=== PATIENT | female | born 1940 | race African-American/Black ===

== ENCOUNTER 2018-09-30 10:57 | Inpatient (IN) | payer MEDICARE, MEDICAID ==
[~2018-09-30] VITALS: Ht 162.6 cm; Wt 70.8 kg
[2018-09-30] MEDS ORDERED: SODIUM CHLORIDE 0.9% 1,000 ML IV ONE (11:48)
[2018-09-30 12:36] LABS: BASOPHILS % 0.5 % (0.0-2.0); EOSINOPHILS % 1.3 % (0.0-5.0); HEMATOCRIT. 39.2 % (36.0-48.0); HEMOGLOBIN. 13.5 g/dL (12.0-16.0); LYMPHOCYTES % 16.2 % (20.0-50.0); MEAN CORPUSCULAR HEMOGLOBIN 31.9 pg (28.0-32.0); MEAN CORPUSCULAR VOLUME 92.7 fL (81.0-99.0); MEAN PLATELET VOLUME 8.1 fl (7.4-10.4); MONOCYTES % 7.7 % (2.0-8.0); NEUTROPHILS % 74.3 % (40.0-76.0); PLATELET 229 x1000/uL (130-400); RED BLOOD CELL COUNT 4.23 mill/uL (4.2-5.4); RED CELL DISTRIBUTION WIDTH 13.8 % (11.6-14.6)
[2018-09-30 12:44] LABS: CHLORIDE 105 mEq/L (98-107)
[2018-09-30 12:47] LABS: PARTIAL THROMBOPLASTIN TIME 32.2 sec (23.4-31.0); PROTHROMBIN TIME 10.4 sec (9.1-11.1)
[2018-10-01] VITALS (7 sets, daily range): BP systolic 124–152; BP diastolic 44–58
[2018-10-01] MEDS ORDERED: LOSA25TA12 PO (01:59)
[2018-10-01] MEDS ORDERED: ROSU5TAB10 PO (01:59)
[2018-10-01] MEDS ORDERED: LEVO75TA7 PO (01:59)
[2018-10-01] MEDS ORDERED: DEXTROSE 50% WATER 50ML SYRINGE IV PRN (02:15)
[2018-10-01] MEDS: BLOOD SUGAR DIAGNOSTIC STRIP TEST SCH ×4 (06:26→21:00)
[2018-10-01] MEDS: LEVOTHYROXINE SODIUM 75MCG TABLET PO SCH (06:27)
[2018-10-01] MEDS: INSULIN LISPRO 100 UNITS/ML SUBCUT SCH ×4 (07:50→22:58)
[2018-10-01] MEDS: PANTOPRAZOLE 40MG DR TABLET PO SCH (08:34)
[2018-10-01] MEDS: LOSARTAN POTASSIUM 25 MG TABLET PO SCH ×2 (08:34→22:07)
[2018-10-01] MEDS ORDERED: MEDICATION NOT ON FORMULARY EA (Losartan Potassium 25 MG) PO SCH (09:00)
[2018-10-01] MEDS ORDERED: IOHEXOL-300 100 ML BOTTLE ONE (09:35)
[2018-10-01 11:12] LABS: HEMATOCRIT 33.6 % (36.0-48.0); HEMOGLOBIN 11.4 g/dL (12.0-16.0); MEAN CORPUSCULAR HEMOGLOBIN 31.7 pg (28.0-32.0); MEAN CORPUSCULAR VOLUME 93.7 fL (81.0-99.0); PLATELET 207 x1000/uL (130-400); RED BLOOD CELL COUNT 3.59 mill/uL (4.2-5.4)
[2018-10-01 12:02] LABS: CHLORIDE 108 mEq/L (98-107)
[2018-10-01 12:11] LABS: T4 FREE 1.16 ng/dL (0.76-1.46)
[2018-10-01] MEDS ORDERED: SORBITOL 70% SOLN 30ML PO NR ×3 (16:00→21:30)
[2018-10-01] MEDS ORDERED: ROSUVASTATIN CALCIUM 5 MG PO SCH (21:00)
[2018-10-01] MEDS: ROSUVASTATIN 5 MG PO SCH (22:50)
[2018-10-02] VITALS: BP 125/45
[2018-10-02 04:00] VITALS: BP 129/45
[2018-10-02 05:53] LABS: BASOPHILS % 0.7 % (0.0-2.0); EOSINOPHILS % 2.3 % (0.0-5.0); HEMATOCRIT. 33.6 % (36.0-48.0); HEMOGLOBIN. 11.4 g/dL (12.0-16.0); LYMPHOCYTES % 20.9 % (20.0-50.0); MEAN CORPUSCULAR HEMOGLOBIN 31.8 pg (28.0-32.0); MEAN CORPUSCULAR VOLUME 93.4 fL (81.0-99.0); MEAN PLATELET VOLUME 8.3 fl (7.4-10.4); MONOCYTES % 10.1 % (2.0-8.0); PLATELET 231 x1000/uL (130-400); RED CELL DISTRIBUTION WIDTH 14.2 % (11.6-14.6)
[2018-10-02 06:01] LABS: INR 1.1; PARTIAL THROMBOPLASTIN TIME 31.8 sec (23.4-31.0); PROTHROMBIN TIME 10.6 sec (9.1-11.1)
[2018-10-02 06:19] LABS: CHLORIDE 112 mEq/L (98-107)
[2018-10-02] MEDS: BLOOD SUGAR DIAGNOSTIC STRIP TEST SCH ×4 (07:20→21:00)
[2018-10-02] MEDS: INSULIN LISPRO 100 UNITS/ML SUBCUT SCH ×3 (07:50→22:16)
[2018-10-02 08:00] VITALS: BP 136/40
[2018-10-02] MEDS: PANTOPRAZOLE 40MG DR TABLET PO SCH (10:20)
[2018-10-02] MEDS: LOSARTAN POTASSIUM 25 MG TABLET PO SCH ×2 (10:20→22:10)
[2018-10-02] MEDS: LEVOTHYROXINE SODIUM 75MCG TABLET PO SCH (10:27)
[2018-10-02 12:00] VITALS: BP 131/44
[2018-10-02] MEDS ORDERED: SIMETHICONE 40 MG/0.6 ML 30ML ONE (15:21)
[2018-10-02] MEDS ORDERED: SODIUM CHLORIDE 0.9% 10ML VIAL ONE (15:21)
[2018-10-02 16:00] VITALS: BP 128/46
[2018-10-02] MEDS ORDERED: SORBITOL 70% SOLN 30ML PO NR (17:30)
[2018-10-02] MEDS ORDERED: MIDAZOLAM HCL 5 MG/5 ML VIAL ONE (17:53)
[2018-10-02] MEDS ORDERED: FENTANYL CITRATE/PF 50MCG/ML 2ML VIAL ONE (17:53)
[2018-10-02] MEDS ORDERED: MIDAZOLAM HCL 5 MG/5 ML VIAL IV PRN (17:58)
[2018-10-02] MEDS ORDERED: FENTANYL CITRATE/PF 50MCG/ML 2ML VIAL IV PRN (17:59)
[2018-10-02 20:00] VITALS: BP 128/44
[2018-10-02] MEDS: ROSUVASTATIN 5 MG PO SCH (22:16)
[2018-10-03] VITALS (7 sets, daily range): BP systolic 110–127; BP diastolic 40–60
[2018-10-03] MEDS: BLOOD SUGAR DIAGNOSTIC STRIP TEST SCH ×2 (06:56→13:02)
[2018-10-03] MEDS: LEVOTHYROXINE SODIUM 75MCG TABLET PO SCH (06:56)
[2018-10-03 07:04] LABS: BASOPHILS % 0.5 % (0.0-2.0); EOSINOPHILS % 2.7 % (0.0-5.0); HEMATOCRIT. 31.2 % (36.0-48.0); HEMOGLOBIN. 10.7 g/dL (12.0-16.0); LYMPHOCYTES % 21.7 % (20.0-50.0); MEAN CORPUSCULAR HEMOGLOBIN 31.8 pg (28.0-32.0); MEAN CORPUSCULAR VOLUME 92.8 fL (81.0-99.0); MEAN PLATELET VOLUME 8.2 fl (7.4-10.4); MONOCYTES % 7.6 % (2.0-8.0); NEUTROPHILS % 67.5 % (40.0-76.0); PLATELET 223 x1000/uL (130-400); RED BLOOD CELL COUNT 3.36 mill/uL (4.2-5.4); RED CELL DISTRIBUTION WIDTH 13.7 % (11.6-14.6)
[2018-10-03] MEDS: INSULIN LISPRO 100 UNITS/ML SUBCUT SCH ×2 (07:50→12:50)
[2018-10-03] MEDS: PANTOPRAZOLE 40MG DR TABLET PO SCH (10:12)
[2018-10-03] MEDS: LOSARTAN POTASSIUM 25 MG TABLET PO SCH (10:12)
== END 2018-10-03 15:51 | disposition home health service (06) | DRG 378 ==
LOC: ER 12:32 → 6WST 14:14 → EDBEDREQ 14:17 → EDBEDREQTM 14:17 → ENRESERV 18:11 → 6WST 10-01 16:39
PROVIDERS: ADMIT Internal Medicine; ATTEND Internal Medicine
PROC: 0DJD8ZZ Inspection of Lower Intestinal Tract, Via Natural or Artificial Opening Endoscopic (ICD-10-PCS; principal; 2018-10-02)
DX: K57.31 Diverticulosis of large intestine without perforation or abscess with bleeding (principal); E44.0 Moderate protein-calorie malnutrition; D64.9 Anemia, unspecified; E03.9 Hypothyroidism, unspecified; E87.6 Hypokalemia; E78.00 Pure hypercholesterolemia, unspecified; E11.9 Type 2 diabetes mellitus without complications; R19.7 Diarrhea, unspecified; K63.5 Polyp of colon; E78.5 Hyperlipidemia, unspecified; I10 Essential (primary) hypertension; K64.8 Other hemorrhoids; M17.10 Unilateral primary osteoarthritis, unspecified knee; M50.30 Other cervical disc degeneration, unspecified cervical region; Z88.8 Allergy status to other drugs, medicaments and biological substances; Z68.26 Body mass index [BMI] 26.0-26.9, adult; Z79.899 Other long term (current) drug therapy
CPT/HCPCS: 36415; 71045; 74178; 80048; 82270; 82962; 83036; 84439; 84443; 85027; 86850; 86900; 93970; 96360; 99291; J1815; J2250; J3010; J7030; Q9967

== ENCOUNTER 2021-07-18 13:02 | Inpatient (IN) | payer MEDICARE, MEDICAID ==
[~2021-07-18] VITALS: Ht 172.7 cm; Wt 83.0 kg
[~2021-07-18 13:02] MED LIST: LEVO75TA7 PO; LOSA25TA26 PO; ROSU5TAB10 PO
[2021-07-18] MEDS ORDERED: LABETALOL 5MG/ML SYR 20 MG/4 ML SYRINGE IV PRN (13:30)
[2021-07-18] MEDS ORDERED: IOHEXOL-350 100 ML BOTTLE ONE (14:40)
[2021-07-18 14:43] LABS: BASOPHILS % 0.5 % (0.0-2.0); CHLORIDE 105 mEq/L (98-107); EOSINOPHILS % 1.3 % (0.0-5.0); HEMATOCRIT. 33.4 % (36.0-48.0); HEMOGLOBIN. 11.5 g/dL (12.0-16.0); LYMPHOCYTES % 13.9 % (20.0-50.0); MEAN CORPUSCULAR HEMOGLOBIN 31.3 pg (28.0-32.0); MEAN CORPUSCULAR VOLUME 90.9 fL (81.0-99.0); MEAN PLATELET VOLUME 7.8 fl (7.4-10.4); MONOCYTES % 8.3 % (2.0-8.0); PLATELET 208 x1000/uL (130-400); RED BLOOD CELL COUNT 3.67 mill/uL (4.2-5.4); RED CELL DISTRIBUTION WIDTH 14.2 % (11.6-14.6)
[2021-07-18] MEDS ORDERED: ASPIRIN 81MG TABLET PO ONE (14:45)
[2021-07-18 14:46] LABS: PROTHROMBIN TIME 11.2 sec (9.6-11.0)
[2021-07-18 14:47] LABS: ETHANOL BLOOD < 10 mg/dL
[2021-07-18 14:50] LABS: LDL CHOLESTEROL 91 mg/dL (5-100)
[2021-07-18 20:00] VITALS: BP 166/58
[2021-07-18] MEDS ORDERED: DEXTROSE 50% WATER 50ML SYRINGE IV PRN (21:30)
[2021-07-18] MEDS ORDERED: ONDANSETRON HCL 4MG/2ML INJ IV PRN (21:30)
[2021-07-18] MEDS ORDERED: ACETAMINOPHEN 325MG TABLET PO PRN (21:30)
[2021-07-18 22:17] VITALS: BP 166/58
[2021-07-18 22:30] LABS: T4 FREE 1.04 ng/dL (0.76-1.46)
[2021-07-19 00:05] VITALS: BP 132/52
[2021-07-19 04:03] VITALS: BP 131/62
[2021-07-19] MEDS: BLOOD SUGAR DIAGNOSTIC STRIP TEST SCH ×4 (05:34→21:18)
[2021-07-19] MEDS: LEVOTHYROXINE SODIUM 75MCG TABLET PO SCH (05:34)
[2021-07-19] MEDS: INSULIN LISPRO 100 UNITS/ML SUBCUT SCH ×4 (05:37→21:00)
[2021-07-19 08:00] VITALS: BP 160/54
[2021-07-19] MEDS: ASPIRIN 81MG TABLET PO SCH (09:13)
[2021-07-19] MEDS: LOSARTAN POTASSIUM 25 MG TABLET PO SCH ×2 (09:13→18:19)
[2021-07-19] MEDS: DOCUSATE SODIUM 100MG CAPSULE PO SCH (09:13)
[2021-07-19] MEDS: CLOPIDOGREL 75MG TABLET PO SCH (12:17)
[2021-07-19 16:30] VITALS: BP 124/55
[2021-07-19 20:00] VITALS: BP 145/62
[2021-07-19] MEDS: ATORVASTATIN CALCIUM 10MG TABLET PO SCH (21:18)
[2021-07-20] VITALS: BP 152/58
[2021-07-20 04:00] VITALS: BP 148/56
[2021-07-20] MEDS: BLOOD SUGAR DIAGNOSTIC STRIP TEST SCH ×4 (06:38→21:00)
[2021-07-20] MEDS: LEVOTHYROXINE SODIUM 75MCG TABLET PO SCH (06:38)
[2021-07-20] MEDS: INSULIN LISPRO 100 UNITS/ML SUBCUT SCH ×4 (06:38→21:00)
[2021-07-20] MEDS: CLOPIDOGREL 75MG TABLET PO SCH (09:19)
[2021-07-20] MEDS: ASPIRIN 81MG TABLET PO SCH (09:20)
[2021-07-20] MEDS: LOSARTAN POTASSIUM 25 MG TABLET PO SCH ×2 (09:21→17:33)
[2021-07-20] MEDS: DOCUSATE SODIUM 100MG CAPSULE PO SCH (09:21)
[2021-07-20 12:00] VITALS: BP 149/47
[2021-07-20 16:30] VITALS: BP 160/58
[2021-07-20 20:00] VITALS: BP 124/43
[2021-07-20 20:01] LABS: T4 FREE 1.11 ng/dL (0.76-1.46)
[2021-07-20 20:10] LABS: FOLIC ACID (FOLATE) SERUM 7.5 ng/mL (>5.38)
[2021-07-20] MEDS: ATORVASTATIN CALCIUM 10MG TABLET PO SCH (22:12)
[2021-07-21] VITALS: BP 144/44
[2021-07-21 04:00] VITALS: BP 147/54
[2021-07-21] MEDS: LEVOTHYROXINE SODIUM 75MCG TABLET PO SCH (06:10)
[2021-07-21] MEDS: INSULIN LISPRO 100 UNITS/ML SUBCUT SCH ×2 (06:10→12:10)
[2021-07-21] MEDS: BLOOD SUGAR DIAGNOSTIC STRIP TEST SCH ×2 (06:10→12:20)
[2021-07-21 08:00] VITALS: BP 147/65
[2021-07-21] MEDS: CLOPIDOGREL 75MG TABLET PO SCH (08:12)
[2021-07-21] MEDS: DOCUSATE SODIUM 100MG CAPSULE PO SCH (08:12)
[2021-07-21] MEDS: LOSARTAN POTASSIUM 25 MG TABLET PO SCH (08:12)
[2021-07-21] MEDS: ASPIRIN 81MG TABLET PO SCH (08:12)
[2021-07-21 16:00] VITALS: BP 134/52
[2021-07-21 17:21] VITALS: BP 134/52
== END 2021-07-21 18:16 | disposition home or self-care (01) | DRG 65 ==
LOC: ER 13:02 → 7EST 14:41 → EDBEDREQ 14:43 → ENRESERV 15:44
PROVIDERS: ADMIT Internal Medicine; ATTEND Internal Medicine
DX: I63.81 Other cerebral infarction due to occlusion or stenosis of small artery (principal); G81.94 Hemiplegia, unspecified affecting left nondominant side; I10 Essential (primary) hypertension; M17.0 Bilateral primary osteoarthritis of knee; M48.02 Spinal stenosis, cervical region; M48.061 Spinal stenosis, lumbar region without neurogenic claudication; E11.9 Type 2 diabetes mellitus without complications; E78.00 Pure hypercholesterolemia, unspecified; Z90.49 Acquired absence of other specified parts of digestive tract; F03.90 Unspecified dementia, unspecified severity, without behavioral disturbance, psychotic disturbance, mood disturbance, and anxiety; D64.9 Anemia, unspecified; E03.9 Hypothyroidism, unspecified; F41.9 Anxiety disorder, unspecified; E78.5 Hyperlipidemia, unspecified; G89.29 Other chronic pain; R53.81 Other malaise; I70.0 Atherosclerosis of aorta; Z82.49 Family history of ischemic heart disease and other diseases of the circulatory system; Z83.3 Family history of diabetes mellitus; Z88.8 Allergy status to other drugs, medicaments and biological substances; Z79.899 Other long term (current) drug therapy; Z88.0 Allergy status to penicillin
CPT/HCPCS: 36415; 70496; 70498; 70551; 71045; 80053; 80061; 80320; 82607; 82746; 82962; 83036; 83718; 83721; 84439; 84443; 84478; 84481; 84484; 85025; 92610; 93005; 93306; 93923; 97162; 99291; Q9967; G0480

== ENCOUNTER 2022-07-14 11:53 | Emergency (ER) | payer MEDICARE, MEDICAID ==
[~2022-07-14] VITALS: Ht 160 cm; Wt 80.0 kg
[2022-07-14 12:30] VITALS: BP 156/57
== END 2022-07-14 13:32 | disposition home or self-care (01) ==
LOC: ER 11:53
DX: I10 Essential (primary) hypertension (principal); E11.9 Type 2 diabetes mellitus without complications; M19.90 Unspecified osteoarthritis, unspecified site; Z79.84 Long term (current) use of oral hypoglycemic drugs; Z90.49 Acquired absence of other specified parts of digestive tract; Z90.89 Acquired absence of other organs
CPT/HCPCS: 82962; 99281